=== PATIENT | female | born 1955 | race Caucasian/White ===

== ENCOUNTER 2016-08-20 11:01 | Emergency (ER) | payer OTHER ==
[2016-08-20 11:35] LABS: HEMOGLOBIN 13.5 gm/dl (12.3-15.3); RED BLOOD COUNT 4.37 M/UL (4.00-5.10)
== END 2016-08-20 16:10 | disposition home or self-care (01) ==
LOC: ER1 11:01
PROVIDERS: Emergency Medicine
DX: R07.9 Chest pain, unspecified (principal); I10 Essential (primary) hypertension
CPT/HCPCS: 36415; 71010; 80053; 82550; 82553; 83874; 83880; 84484; 85025; 85379; 93005; 99285

== ENCOUNTER → 2016-08-26 | Outpatient (CLI) | payer OTHER | LOC: EMI 08:57 | DX: G35 Multiple sclerosis (principal) | CPT/HCPCS: 70553; A9577; J7050 ==